=== PATIENT | male | born 1960 | race Caucasian/White ===

== ENCOUNTER → 2016-12-09 | Outpatient (CLI) | payer OTHER | LOC: CIMAGING 13:35 | PROVIDERS: ATTEND Internal Medicine | DX: R91.8 Other nonspecific abnormal finding of lung field (principal) | CPT/HCPCS: 71020-PO ==

== ENCOUNTER 2018-01-26 09:16 | Emergency (ER) | payer OTHER ==
[2018-01-26] MEDS ORDERED: OXYCODONE/APAP 5/325 TAB PO ONE (09:35)
[2018-01-26] MEDS ORDERED: predniSONE 20 MG TAB PO ONE (09:35)
--- NOTE | 2018-01-26 09:37 | EDPHY ---
H & P Stated Complaint: l sciatic back pain numbess since friday Time Seen by Provider: 01/26/18 09:29 HPI/ROS: CHIEF COMPLAINT: Low back pain HISTORY OF PRESENT ILLNESS: The patient is a 57-year-old overweight man with a history of low back pain. He comes to the emergency department complaining of pain that is radiating down the left side of his leg. No weakness. No bowel or bladder abnormalities. No difficulty walking. He states that his sciatic nerve pain was exacerbated by massage 2 weeks ago. It is been hurting ever since. He has not seen a back specialist before. No previous procedures. No fevers. No IV drug abuse. No immuno compromising conditions. Severity: Severe Modifying factors: Worsened by movement not by weight-bearing REVIEW OF SYSTEMS: Constitutional: denies: chills, fever, recent illness, recent injury EENTM: denies: blurred vision, double vision, nose congestion Respiratory: denies: cough, shortness of breath Cardiac: denies: chest pain, irregular heart rate, lightheadedness, palpitations Gastrointestinal/Abdominal: denies: abdominal pain, diarrhea, nausea, vomiting, blood streaked stools Genitourinary: denies: dysuria, frequency, hematuria, pain Musculoskeletal: See HPI Skin: denies: lesions, rash, jaundice, bruising Neurological: denies: headache, numbness, paresthesia, tingling, dizziness, weakness Hematologic/Lymphatic: denies: blood clots, easy bleeding, easy bruising Immunologic/allergic: denies: HIV/AIDS, transplant 10 systems reviewed and negative except as noted EXAM: GENERAL: Well-appearing, well-nourished and in no acute distress. HEAD: Atraumatic, normocephalic. EYES: Pupils equal round and reactive to light, extraocular movements intact, sclera anicteric, conjunctiva are normal. ENT: TMs normal, nares patent, oropharynx clear without exudates. Moist mucous membranes. NECK: Normal range of motion, supple without lymphadenopathy or JVD. LUNGS: Breath sounds clear to auscultation bilaterally and equal. No wheezes rales or rhonchi. HEART: Regular rate and rhythm without murmurs, rubs or gallops. ABDOMEN: Soft, nontender, normoactive bowel sounds. No guarding, no rebound. No masses appreciated. BACK: No CVA tenderness, no spinal tenderness, step-offs or deformities pain to lower back that radiates down the lateral side of left leg. Stops at the knee. EXTREMITIES: Normal range of motion, no pitting or edema. No clubbing or cyanosis. No weakness. NEUROLOGICAL: Cranial nerves II through XII grossly intact. Normal speech, normal weight-bearing, able to ambulate but with pain. 5/5 strength, normal movement in all extremities, normal sensation, normal reflexes PSYCH: Normal mood, normal affect. SKIN: Warm, dry, normal turgor, no visible rashes or lesions. Source: Patient Exam Limitations: No limitations - Personal History Current Tetanus Diphtheria and Acellular Pertussis (TDAP): Yes - Medical/Surgical History Hx Asthma: No Hx Chronic Respiratory Disease: No Hx Diabetes: No Hx Cardiac Disease: No Hx Renal Disease: No Hx Cirrhosis: No Hx Alcoholism: No Hx HIV/AIDS: No Hx Splenectomy or Spleen Trauma: No Other PMH: herniated disc/htn - Family History Significant Family History: No pertinent family hx - Social History Smoking Status: Never smoked Alcohol Use: Sober Drug Use: None Constitutional: Initial Vital Signs Temperature (C) 36.7 C 01/26/18 09:23 Heart Rate 85 01/26/18 09:23 Respiratory Rate 18 01/26/18 09:23 Blood Pressure 180/104 H 01/26/18 09:23 O2 Sat (%) 95 01/26/18 09:23 O2 Delivery Mode Room Air O2 (L/minute) 2 Allergies/Adverse Reactions: mri dye Allergy (Uncoded 01/26/18 09:22) Home Medications: Medication Instructions Recorded Benadryl 01/26/18 Gabapentin [Neurontin 300 MG (*)] 300 mg PO TID #30 cap 01/26/18 Lidocaine [Lidoderm] 1 each TP BID #10 adh..patch 01/26/18 Lisinopril 01/26/18 methylPREDNISolone [Medrol Dose 1 each PO AD #1 ea 01/26/18 Matt] morphINE IR [morphINE IR 15 mg (*)] 15 mg PO Q3-4PRN PRN #10 tab 01/26/18 Medical Decision Making ED Course/Re-evaluation: Patient and came her thinking that they could get an MRI. I agree that they probably should get an MRI but that it is not emergent. The patient does not have any paralysis or weakness. No bowel or bladder abnormalities. No focal deficits. We discussed treatment with pain medication and steroids and referral to a back specialist. They are in agreement with this plan. We discussed symptoms that would indicate worsening and indications for returning to the ER. 10:50 a.m. patient is lying still is states he is feeling somewhat better but is still having significant pain. I will order more Dilaudid as well as a lidocaine patch. We discussed expectations. He will not be completely pain- free. 11 40 the patient is feeling somewhat better. He is moving without difficulty. He does have pain with ambulation. I suggested rest and then physical therapy and follow up with the back specialist. He understands and agrees with this plan. He has also been given a lidocaine patch. 12:30 p.m. the patient is ambulating. He states that his low back pain is gone but he still having some pain to his lateral thigh. No weakness or numbness. We agreed to try gabapentin. Differential Diagnosis: Partial list of the Differential diagnosis considered include but were not limited to; sciatica, low back pain, muscle spasm and although unlikely based on the history and physical exam, I also considered kidney stone, hernia, diverticulitis, cauda equina. I discussed these differential diagnoses and the plan with the patient as well as the usual and expected course. The patient understands that the diagnosis is provisional and that in medicine we are not always correct and that further workup is often warranted. Usual and customary warnings were given. All of the patient's questions were answered. The patient was instructed to return to the emergency department should the symptoms at all worsen or return, otherwise to followup with the physician as we discussed. - Data Points Medications Given: Discontinued Medications Diazepam (Valium) 5 mg IVP EDNOW ONE Stop: 01/26/18 09:40 Last Admin: 01/26/18 09:54 Dose: 5 mg Gabapentin (Neurontin) 300 mg PO EDNOW ONE Stop: 01/26/18 12:40 Last Admin: 01/26/18 12:56 Dose: 300 mg Hydromorphone HCl (Dilaudid) 0.5 mg IVP EDNOW ONE Stop: 01/26/18 09:41 Last Admin: 01/26/18 09:53 Dose: 0.5 mg Hydromorphone HCl (Dilaudid) 1 mg IVP EDNOW ONE Stop: 01/26/18 10:49 Last Admin: 01/26/18 10:55 Dose: 1 mg Miscellaneous Medication (Icy Hot Lidocaine/Menthol 4%/1% Patch) 1 patch TD EDNOW ONE Stop: 01/26/18 10:50 Last Admin: 01/26/18 10:54 Dose: 1 patch Oxycodone/Acetaminophen (Percocet 5/325) 2 tab PO EDNOW ONE Stop: 01/26/18 09:36 Last Admin: 01/26/18 09:50 Dose: Not Given Prednisone (Prednisone) 60 mg PO EDNOW ONE Stop: 01/26/18 09:36 Last Admin: 01/26/18 09:53 Dose: 60 mg Departure - Departure Disposition: Home, Routine, Self-Care Clinical Impression: Acute low back pain with left-sided sciatica Qualifiers: Back pain laterality: left Qualified Code(s): M54.42 - Lumbago with sciatica, left side Condition: Fair Instructions: Sciatica (ED) Referrals: Rima Renner MD [Primary Care Provider] - As per Instructions Nicolas Arriaga MD [Medical Doctor] - 2-3 days, call for appt. Prescriptions: Gabapentin [Neurontin 300 MG (*)] 300 mg PO TID #30 cap Lidocaine [Lidoderm] 1 each TP BID #10 adh..patch methylPREDNISolone [Medrol Dose Matt] 1 each PO AD #1 ea morphINE IR [morphINE IR 15 mg (*)] 15 mg PO Q3-4PRN PRN #10 tab PRN Reason: Pain, Severe
[2018-01-26] MEDS ORDERED: DIAZEPAM 5 MG/ML 1 ML SYR IVP ONE (09:39)
[2018-01-26] MEDS ORDERED: HYDROmorphONE/DILAUDID 2 MG/ML INJ IVP ONE ×2 (09:40→10:48)
[2018-01-26] MEDS ORDERED: predniSONE 20 MG TAB ONE (09:51)
[2018-01-26] MEDS ORDERED: LIDOCAINE 4%/MENTHOL 1% PATCH TD ONE (10:49)
[2018-01-26 12:34] VITALS: BP 151/87
[2018-01-26] MEDS ORDERED: GABAPENTIN 300 MG CAP PO ONE (12:39)
[2018-01-26] MEDS ORDERED: PATCH REMOVAL 1 EA PATCH TD SCH (21:00)
== END 2018-01-26 12:34 | disposition home or self-care (01) ==
DX: M54.42 Lumbago with sciatica, left side (principal); I10 Essential (primary) hypertension
CPT/HCPCS: 96374; J1170; J3360; J7512

== ENCOUNTER → 2018-02-10 | Outpatient (CLI) | payer OTHER | LOC: FIMAGING 19:07 | PROVIDERS: ATTEND Internal Medicine | DX: M51.06 Intervertebral disc disorders with myelopathy, lumbar region (principal); M48.062 Spinal stenosis, lumbar region with neurogenic claudication; Q67.5 Congenital deformity of spine ==